=== PATIENT | male | born 1980 | race African-American/Black ===

== ENCOUNTER 2020-03-02 17:08 | Emergency (ER) | payer MEDICAID ==
[~2020-03-02] VITALS: Ht 182.9 cm; Wt 87.0 kg
[2020-03-02 17:45] VITALS: BP 138/72
[2020-03-02] MEDS ORDERED: HYDROCODONE/ACETAMINOPHEN 5/325MG TABLET PO ONE ×2 (17:45→19:30)
== END 2020-03-02 21:00 | disposition home or self-care (01) ==
LOC: ER 17:16
DX: S22.32XA Fracture of one rib, left side, initial encounter for closed fracture (principal); S42.012A Anterior displaced fracture of sternal end of left clavicle, initial encounter for closed fracture; S00.03XA Contusion of scalp, initial encounter; S16.1XXA Strain of muscle, fascia and tendon at neck level, initial encounter; S70.02XA Contusion of left hip, initial encounter; F17.210 Nicotine dependence, cigarettes, uncomplicated; F12.10 Cannabis abuse, uncomplicated; Z87.81 Personal history of (healed) traumatic fracture; Z87.828 Personal history of other (healed) physical injury and trauma; V87.8XXA Person injured in other specified noncollision transport accidents involving motor vehicle (traffic), initial encounter; Y93.89 Activity, other specified; Y92.488 Other paved roadways as the place of occurrence of the external cause
CPT/HCPCS: 71101; 73030; 73502; 99285